=== PATIENT | female | born 1990 | race Caucasian/White ===

== ENCOUNTER 2022-07-11 15:03 | Emergency (ER) | payer BC ==
[2022-07-11 15:11] VITALS: TEMP 98.2
[2022-07-11] MEDS ORDERED: ONDANSETRON 4 MG/2 ML VIAL IVP STA (16:41)
[2022-07-11] MEDS ORDERED: SODIUM CHLORIDE 0.9% 1,000 ML IV ONE ×2 (16:41→18:22)
[2022-07-11 17:08] LABS: Basophils % (A) 0 %; Eosinophils # (A) 0.1 k/uL (0-0.7); Eosinophils % (A) 1 %; HCT 38.4 % (34.0-46.0); HGB 13.3 gm/dL (11.4-16.0); Lymphocytes # (A) 1.5 k/uL (1.0-4.8); Lymphocytes % (A) 17 %; MCH 31.5 pg (25.0-35.0); MCHC 34.6 g/dL (31.0-37.0); Mean Platelet Volume 8.3; Monocytes # (A) 0.4 k/uL (0-1.0); Monocytes % (A) 5 %; Neutrophils # (A) 6.7 k/uL (1.3-7.7); Neutrophils % (A) 76 %; Platelet Count 181 k/uL (150-450); RBC 4.23 m/uL (3.80-5.40); RDW 12.9 % (11.5-15.5); WBC 8.8 k/uL (3.8-10.6)
[2022-07-11 17:26] LABS: ALT 17 U/L (4-34); AST 31 U/L (14-36); African American GFR (CKD) >90 (>60 ml/min/1.73 sqM); Alkaline Phosphatase 54 U/L (38-126); Anion Gap 12 mmol/L; Blood Urea Nitrogen 17 mg/dL (7-17); Carbon Dioxide 21 mmol/L (22-30); Chloride 106 mmol/L (98-107); Glucose 90 mg/dL (74-99); Lipase 118 U/L (23-300); Magnesium 1.9 mg/dL (1.6-2.3); Non-African American GFR(CKD) >90 (>60 ml/min/1.73 sqM); Sodium 139 mmol/L (137-145); Total Bilirubin 1.1 mg/dL (0.2-1.3); Total Protein 8.2 g/dL (6.3-8.2)
[2022-07-11 17:31] LABS: Potassium 4.4 mmol/L (3.5-5.1)
[2022-07-11 17:42] VITALS: RESP 16
--- NOTE | 2022-07-11 17:49 | ED ---
General Adult HPI - General Chief complaint: Nausea/Vomiting/Diarrhea Stated complaint: 12 weeks , dehydration/vomiting Time Seen by Provider: 07/11/22 15:56 Source: patient Mode of arrival: ambulatory Limitations: no limitations - History of Present Illness Initial comments: This is a 31-year-old female with a past medical history including previous gastric sleeve surgery presents emergency department for nausea and vomiting in . The patient stated that she has been vomiting with nausea over the last 2 days and stated that she recently just returned back from her [facility] where she was on a cruise ship for 12 days. The patient stated that she has been doing well throughout this but stated that it became worse last 2 days. The patient is 12 weeks . The patient denied any other acute pain or complaints at this time. The patient was advised to come to the emergency department by her BANK EXAMINER. And stated that her last full meal was likely 2 days ago. The patient denied any other acute pain or complaints at this time. - Related Data Home Medications Medication Instructions Recorded Confirmed Aspirin EC [Ecotrin Low Dose] 81 mg PO HS 07/11/22 07/11/22 Obm-Bfrz-Jrago Acid 1 cap PO HS 07/11/22 07/11/22 [-U Capsule (formulary)] Thyroid,Pork [[place] Thyroid] 60 mg PO DAILY 07/11/22 07/11/22 Previous Rx's Medication Instructions Recorded Cephalexin [Keflex] 500 mg PO Q6HR 1 Days #20 cap 07/11/22 Ondansetron Odt [Zofran Odt] 4 mg PO Q8HR PRN #20 tab 07/11/22 Allergies Allergy/AdvReac Type Severity Reaction Status Date / Time latex Allergy Rash/Hives Verified 07/11/22 17:57 Review of Systems ROS Statement: Those systems with pertinent positive or pertinent negative responses have been documented in the HPI. ROS Other: All systems not noted in ROS Statement are negative. Past Medical History Past Medical History: No Reported History History of Any Multi-Drug Resistant Organisms: None Reported Additional Past Surgical History / Comment(s): Gastric sleeve Smoking Status: Never smoker Past Alcohol Use History: None Reported Past Drug Use History: None Reported General Exam Limitations: no limitations General appearance: alert, in no apparent distress Head exam: Present: atraumatic, normocephalic, normal inspection Eye exam: Present: normal appearance, PERRL Pupils: Present: normal accommodation ENT exam: Present: normal exam, normal oropharynx, mucous membranes moist Neck exam: Present: normal inspection, full ROM Respiratory exam: Present: normal lung sounds bilaterally Cardiovascular Exam: Present: regular rate, normal rhythm, normal heart sounds GI/Abdominal exam: Present: soft, normal bowel sounds Extremities exam: Present: normal inspection, full ROM Back exam: Present: normal inspection, full ROM Neurological exam: Present: alert, oriented X3, CN II-XII intact Psychiatric exam: Present: normal affect, normal mood Skin exam: Present: warm, dry Course Vital Signs 07/11/22 07/11/22 07/11/22 15:09 15:58 16:00 Temperature 98.2 F Pulse Rate 90 Respiratory 20 Rate Blood Pressure 113/76 O2 Sat by Pulse 99 98 100 Oximetry 07/11/22 07/11/22 07/11/22 16:02 16:30 17:00 Temperature Pulse Rate 77 79 61 Respiratory 18 20 16 Rate Blood Pressure 128/81 128/81 115/78 O2 Sat by Pulse 100 100 100 Oximetry 07/11/22 07/11/22 07/11/22 17:30 18:00 18:30 Temperature Pulse Rate 62 72 71 Respiratory 16 16 16 Rate Blood Pressure 107/70 103/71 99/75 O2 Sat by Pulse 100 95 100 Oximetry 07/11/22 19:00 Temperature Pulse Rate 70 Respiratory 16 Rate Blood Pressure 101/62 O2 Sat by Pulse Oximetry Medical Decision Making - Medical Decision Making Was pt. sent in by a medical professional or institution (, PA, WAITER/WAITRESS INFORMAL, urgent care, hospital, or group home...) When possible be specific @ -Yes, patient's BANK EXAMINER Did you speak to anyone other than the patient for history (EMS, parent, family, police, friend...)? What history was obtained from this source @ -No Did you review nursing and triage notes (agree or disagree)? Why? @ -I reviewed and agree with nursing and triage notes Were old charts reviewed (outside hosp., previous admission, EMS record, old EKG, old radiological studies, urgent care reports/EKG's, group home records)? Report findings @ -No old charts were reviewed Differential Diagnosis (chest pain, altered mental status, abdominal pain women, abdominal pain men, vaginal bleeding, weakness, fever, dyspnea, syncope, headache, dizziness, GI bleed, back pain, seizure, CVA, palpatations, mental health)? @ -Dehydration, nausea and vomiting in , UTI EKG interpreted by me (3pts min.). @ -None X-rays interpreted by me (1pt min.). @ -None done CT interpreted by me (1pt min.). @ -None done U/S interpreted by me (1pt. min.). @ -None done What testing was considered but not performed or refused? (CT, X-rays, U/S, labs)? Why? @ -None What meds were considered but not given or refused? Why? @ -None Did you discuss the management of the patient with other professionals (professionals i.e. , PA, WAITER/WAITRESS INFORMAL, lab, RT, psych nurse, social science research assistant, tire adjuster, teacher, community service officer, pillowcase sewer)? Give summary @ -No Was smoking cessation discussed for >3mins.? @ -No Was critical care preformed (if so, how long)? @ -No Were there social determinants of health that impacted care today? How? (Homelessness, low income, unemployed, alcoholism, drug addiction, transportation, low edu. Level, literacy, decrease access to med. care, residential, rehab)? @ -No Was there de-escalation of care discussed even if they declined (Discuss DNR or withdrawal of care, Hospice)? DNR status @ -No What co-morbidities impacted this encounter? (DM, HTN, Smoking, COPD, CAD, Cancer, CVA, ARF, Chemo, Hep., AIDS, mental health diagnosis, sleep apnea, morbid obesity)? @ -None Was patient admitted / discharged? Hospital course, mention meds given and route, prescriptions, significant lab abnormalities, going to OR and other pertinent info. @ -The patient was seen and evaluated in the emergency department. Physical exam, the patient was resting in bed. Vital signs were stable. Laboratory workup was within normal limits and the patient was given 1 L no sealing fluid and 4 mg of Zofran. The patient had improvement of her symptoms and did have a second liter of fluids. The patient remained stable and did urinalysis did show signs of patient's medic bacteriuria therefore the patient was given a dose of Keflex and a prescription for Keflex to be taken at home. The patient was also given a prescription for Zofran to be taken at home. The patient was advised to follow-up with her BANK EXAMINER for further workup and evaluation and to report back to the emergency department if her pain or symptoms became acutely worse. The patient was agreeable to this and all of her questions were answered. The patient was discharged home in stable condition. Undiagnosed new problem with uncertain prognosis? @ -No Drug Therapy requiring intensive monitoring for toxicity (Heparin, Nitro, I nsulin, Cardizem)? @ -No Were any procedures done? @ -No Diagnosis/symptom? @ -Nausea, vomiting in Acute, or Chronic, or Acute on Chronic? @ -Acute Uncomplicated (without systemic symptoms) or Complicated (systemic symptoms)? @ -Uncomplicated Side effects of treatment? @ -No Exacerbation, Progression, or Severe Exacerbation? @ -No Poses a threat to life or bodily function? How? (Chest pain, USA, VT, pneumonia, PE, COPD, DKA, ARF, appy, cholecystitis, CVA, Diverticulitis, Homicidal, Suicidal, threat to staff... and all critical care pts) @ -No Diagnosis/symptom? @ -Asymptomatic bacteriuria in Acute, or Chronic, or Acute on Chronic? @ -Acute Uncomplicated (without systemic symptoms) or Complicated (systemic symptoms)? @ -Uncomplicated Side effects of treatment? @ -none Exacerbation, Progression, or Severe Exacerbation] @ -no Poses a threat to life or bodily function? @ -no - Lab Data Result diagrams: 07/11/22 16:47 07/11/22 16:47 Lab Results 07/11/22 07/11/22 07/11/22 Range/Units 16:47 16:47 19:00 WBC 8.8 (3.8-10.6) k/uL RBC 4.23 (3.80-5.40) m/uL Hgb 13.3 (11.4-16.0) gm/dL Hct 38.4 (34.0-46.0) % MCV 91.0 (80.0-100.0) fL MCH 31.5 (25.0-35.0) pg MCHC 34.6 (31.0-37.0) g/dL RDW 12.9 (11.5-15.5) % Plt Count 181 (150-450) k/uL MPV 8.3 Neutrophils % 76 % Lymphocytes % 17 % Monocytes % 5 % Eosinophils % 1 % Basophils % 0 % Neutrophils # 6.7 (1.3-7.7) k/uL Lymphocytes # 1.5 (1.0-4.8) k/uL Monocytes # 0.4 (0-1.0) k/uL Eosinophils # 0.1 (0-0.7) k/uL Basophils # 0.0 (0-0.2) k/uL Sodium 139 (137-145) mmol/L Potassium 4.4 (3.5-5.1) mmol/L Chloride 106 (98-107) mmol/L Carbon Dioxide 21 L (22-30) mmol/L Anion Gap 12 mmol/L BUN 17 (7-17) mg/dL Creatinine 0.47 L (0.52-1.04) mg/dL Est GFR (CKD-EPI)AfAm >90 (>60 ml/min/1.73 sqM) Est GFR (CKD-EPI)NonAf >90 (>60 ml/min/1.73 sqM) Glucose 90 (74-99) mg/dL Calcium 10.0 (8.4-10.2) mg/dL Magnesium 1.9 (1.6-2.3) mg/dL Total Bilirubin 1.1 (0.2-1.3) mg/dL AST 31 (14-36) U/L ALT 17 (4-34) U/L Alkaline Phosphatase 54 (38-126) U/L Total Protein 8.2 (6.3-8.2) g/dL Albumin 5.0 (3.5-5.0) g/dL Lipase 118 (23-300) U/L Urine Color Yellow Urine Appearance Clear (Clear) Urine pH 6.0 (5.0-8.0) Ur Specific [place] 1.037 H (1.001-1.035) Urine Protein 1+ H (Negative) Urine Glucose (UA) Negative (Negative) Urine Ketones 4+ H (Negative) Urine Blood Negative (Negative) Urine Nitrite Negative (Negative) Urine Bilirubin Negative (Negative) Urine Urobilinogen 2.0 (<2.0) mg/dL Ur Leukocyte Esterase Negative (Negative) Urine RBC 1 (0-5) /hpf Urine WBC 11 H (0-5) /hpf Ur Squamous Epith Cells 2 (0-4) /hpf Urine Bacteria Few H (None) /hpf Hyaline Casts 2 (0-2) /lpf Urine Mucus Many H (None) /hpf Disposition Clinical Impression: Vomiting affecting , UTI (urinary tract infection) Disposition: HOME SELF-CARE Condition: Stable Instructions (If sedation given, give patient instructions): Nausea and Vomiting in (ED), Urinary Tract Infection in Women (DC) Prescriptions: Cephalexin [Keflex] 500 mg PO Q6HR 1 Days #20 cap Ondansetron Odt [Zofran Odt] 4 mg PO Q8HR PRN #20 tab PRN Reason: Nausea Is patient prescribed a controlled substance at d/c from ED?: No Referrals: John Miguel DO [Primary Care Provider] - 1-2 days Time of Disposition: 19:45
[2022-07-11 19:19] VITALS: BP 101/62; PULSE 70
[2022-07-11 19:41] LABS: Appearance,Urine Clear (Clear); Bacteria,Urine Few /hpf; Bilirubin,Urine Negative (Negative); Blood,Urine Negative (Negative); Color,Urine Yellow; Glucose,Urine (UA) Negative (Negative); Hyaline Casts,Urine 2 /lpf (0-2); Ketones,Urine 4+ (Negative); Leukocyte Esterase,Urine Negative (Negative); Mucus,Urine Many /hpf; Nitrite,Urine Negative (Negative); Protein,Urine 1+ (Negative); RBC,Urine 1 /hpf (0-5); Specific Gravity,Urine 1.037 (1.001-1.035); Squamous Epithelial Cell,Urine 2 /hpf (0-4); WBC,Urine 11 /hpf (0-5)
[2022-07-11] MEDS ORDERED: CEPHALEXIN 500 MG CAP PO STA (19:51)
== END 2022-07-11 20:11 | disposition home or self-care (01) ==
LOC: EC 15:03
DX: O21.9 Vomiting of pregnancy, unspecified (principal); O23.41 Unspecified infection of urinary tract in pregnancy, first trimester; Z91.040 Latex allergy status; Z3A.12 12 weeks gestation of pregnancy
CPT/HCPCS: 36415; 80053; 83690; 83735; 85025; 81001; 99284; 96374; 96361 ×2; J2405

== ENCOUNTER 2022-12-24 05:58 | Inpatient (IN) | payer BC ==
[2022-12-24] MEDS ORDERED: TERBUTALINE 1 MG/ML VIAL SQ PRN (06:55)
[2022-12-24] MEDS ORDERED: METHYLERGONOVINE 0.2 MG/ML 1 ML AMP IM PRN (06:55)
[2022-12-24] MEDS ORDERED: TRANEXAMIC 1,000 MG/100ML-NACL 1,000 MG in EMPTY BAG 1 BAG IV PRN (06:55)
[2022-12-24] MEDS ORDERED: PENICILLIN G POTASSIUM 5,000,000 UNIT in DEXTROSE 5% IN WATER 100 ML IVPB STA ×2 (06:55)
[2022-12-24] MEDS ORDERED: LIDOCAINE 0.5% (PF) 5 MG/ML (50 ML SDV) SQ PRN (06:55)
[2022-12-24] MEDS ORDERED: OXYTOCIN 10 UNIT/ML 1 ML VIAL IM PRN (06:55)
[2022-12-24] MEDS ORDERED: miSOPROStoL 200 MCG TAB PO PRN (06:55)
[2022-12-24] MEDS ORDERED: CARBOPROST TROMETHAMINE 250 MCG/ML 1 ML AMP IM PRN (06:55)
[2022-12-24] MEDS ORDERED: OXYTOCIN 30 UNITS/500 ML NS 30 UNIT in SALINE 1 500ML.BAG IV SCH ×2 (07:00→16:00)
[2022-12-24] MEDS: LACTATED RINGERS 1,000 ML IV SCH ×2 (07:39→10:45)
[2022-12-24 07:57] LABS: Basophils % (A) 0 %; Eosinophils # (A) 0.3 k/uL (0-0.7); Eosinophils % (A) 3 %; HCT 36.9 % (34.0-46.0); HGB 12.4 gm/dL (11.4-16.0); Lymphocytes # (A) 2.6 k/uL (1.0-4.8); Lymphocytes % (A) 25 %; MCH 32.1 pg (25.0-35.0); MCHC 33.6 g/dL (31.0-37.0); MCV 95.7 fL (80.0-100.0); Mean Platelet Volume 10.7; Monocytes # (A) 0.5 k/uL (0-1.0); Monocytes % (A) 5 %; Neutrophils # (A) 6.9 k/uL (1.3-7.7); Neutrophils % (A) 66 %; Platelet Count 170 k/uL (150-450); RBC 3.86 m/uL (3.80-5.40); RDW 13.2 % (11.5-15.5); WBC 10.5 k/uL (3.8-10.6)
[2022-12-24 08:00] LABS: Glucose,Whole Blood 79 mg/dL (70-110)
--- NOTE | 2022-12-24 09:23 | P.HPOB ---
History of Present Illness H&P Date: 12/24/22 Chief Complaint: leaking of fluid Ms. Torres is a 32 year old at 36 weeks and 2 days presenting with grossly ruptured membranes and diagnosed with PPROM. The patient was admitted and pitocin augmentation started. The has been complicated by finding of marginal cord insertion as well as diet-controlled gestational diabetes. The fetus was measuring in the 61%ile on most recent growth ultrasound at 28 weeks. The patient herself has a history of gastric sleeve surgery and hypothyroidism (managed by PCP). Maternal serologies: blood type A positive, antibody screen negative, rubella non-immune, VDRL none-reactive, HBsAg negative, HIV negative, GBS unknown. Past Medical History Past Medical History: Asthma, Thyroid Disorder Additional Past Medical History / Comment(s): childhood asthma, hypothyroid, pancreatitis from gastric sleeve History of Any Multi-Drug Resistant Organisms: None Reported Past Surgical History: Cholecystectomy, Tonsillectomy Additional Past Surgical History / Comment(s): Gastric sleeve, breasts augmentation Past Anesthesia/Blood Transfusion Reactions: No Reported Reaction Past Psychological History: Anxiety, Depression Smoking Status: Never smoker Past Alcohol Use History: None Reported Past Drug Use History: None Reported Medications and Allergies Home Medications Medication Instructions Recorded Confirmed Type Aspirin EC [Ecotrin Low Dose] 81 mg PO HS 07/11/22 12/24/22 History Lso-Rmea-Ffqlt Acid 1 cap PO HS 07/11/22 12/24/22 History [-U Capsule (formulary)] Thyroid,Pork [[place] Thyroid] 60 mg PO DAILY 07/11/22 12/24/22 History Allergies Allergy/AdvReac Type Severity Reaction Status Date / Time surgical glue Allergy Intermediate Swelling Uncoded 12/24/22 06:13 Exam Vital Signs Temp Pulse Resp BP Pulse Ox 12/24/22 07:59 98.0 F 61 16 124/78 12/24/22 06:54 97.6 F 72 16 120/77 99 Intake and Output 12/23/22 12/24/22 12/24/22 22:59 06:59 14:59 Other: Weight 71.668 kg 71.668 kg Focused physical exam is performed. This is a healthy-appearing in no apparent distress. Abdomen is gravid and non-tender. Cervical exam is 2-3 cm dilated, 70% effaced, and -3 station. Extremities are non-tender, non- edematous. heart tones are Category I. Tocometer is graphing contractions every 2-3 minutes. Results Result Diagrams: 12/24/22 07:30 Assessment and Plan Assessment: 32 year old at 36 weeks and 2 days presenting with PPROM, complicated by GDMA1 and marginal cord insertion Plan: Admit, NPO, mIVF, PCN ppx for GBS unknown and , pitocin augmentation of labor, continuous EFM, close monitoring of patient. POC glucose wnl at admission. Epidural prn. Time with Patient: Less than 30
[2022-12-24] MEDS ORDERED: NALBUPHINE 10 MG/ML (10 ML MDV) IV PRN (09:24)
[2022-12-24] MEDS ORDERED: ROPIVACAINE 5 MG/ML 20 ML AMPULE ONE (10:17)
[2022-12-24] MEDS ORDERED: fentaNYL (PF) 50 MCG/ML 5 ML AMP ONE (10:17)
[2022-12-24] MEDS ORDERED: SODIUM CHLORIDE 0.9% 100 ML BAG ONE (10:17)
[2022-12-24] MEDS: PENICILLIN G POTASSIUM 2,500,000 UNIT in DEXTROSE 5% IN WATER 100 ML IVPB SCH ×4 (11:37→16:23)
[2022-12-24] MEDS ORDERED: MEASLES-MUMPS-RUBELLA VACC/PF 12,500 UNIT/0.5 ML VIAL SQ ONE (15:56)
[2022-12-24] MEDS ORDERED: BENZOCAINE/MENTHOL SPRAY 1 GM/SPRAY AEROSOL TOPICAL PRN (15:56)
[2022-12-24] MEDS ORDERED: SIMETHICONE 80 MG CHEWABLE PO PRN (15:56)
[2022-12-24] MEDS ORDERED: ZOLPIDEM 5 MG TAB PO PRN (15:56)
[2022-12-24] MEDS ORDERED: LANOLIN CREAM 5 GM TUBE TOPICAL PRN (15:56)
[2022-12-24] MEDS ORDERED: diphenhydrAMINE 25 MG CAP PO PRN (15:56)
[2022-12-24] MEDS ORDERED: diphenhydrAMINE 50 MG CAP PO PRN (15:56)
[2022-12-24] MEDS ORDERED: diphenhydrAMINE 50 MG/ML 1 ML VIAL IVP PRN ×2 (15:56)
[2022-12-24] MEDS ORDERED: HYDROCORTISONE 2.5% RECTAL CREAM 30 GM TUBE RECTAL PRN (15:56)
--- NOTE | 2022-12-24 15:56 | P.PROBDLV ---
Vaginal Delivery Note - . Vaginal Delivery Note: DATE OF SERVICE: 12/24/2022 PROCEDURE: Vaginal Delivery ATTENDING: Dr. Arlen Barron MD ESTIMATED BLOOD LOSS: 700 mL FINDINGS: VFI, Apgars 6/8, Weight 5#15oz PROCEDURE: Patient was a 32 y/o at 36 weeks and 2 days who presented to labor and delivery with PPROM. The patient was ravi irregularly so oxytocin augmentation was started. Penicillin was given for GBS prophylaxis. The patient progressed quickly to complete dilation. The patient pushed for approximately 2 hours. The head delivered in occiput anterior position without difficulty followed by shoulders and body over intact perineum. placed on maternal abdomen and bulb suctioned. Cord was clamped and cut. Placenta delivered whole with gentle cord traction. Oxytocin was started to facilitate uterine tone. Uterine fundus firm but the lower uterine segment was boggy. Patient had a hemorrhage with total blood loss estimated at 700 mL. Bladder was drained, bimanual massage was performed, and IM Methergine was given to facilitate uterine contraction. Perineal inspection revealed periurethral lacerations and a left sulcal laceration all repaired with 3-0 Vicryl in a running fashion. Patient stable .
[2022-12-24] MEDS: IBUPROFEN 600 MG TAB PO PRN (18:24)
[2022-12-24] MEDS ORDERED: ONDANSETRON 4 MG TAB PO PRN (18:48)
[2022-12-25] MEDS: IBUPROFEN 600 MG TAB PO PRN ×3 (04:39→20:34)
[2022-12-25] MEDS: SENNOSIDES-DOCUSATE SODIUM 1 EACH TAB PO SCH ×3 (07:37→20:35)
[2022-12-25] MEDS: ACETAMINOPHEN TAB 325 MG TAB PO PRN ×2 (07:38→18:04)
[2022-12-25 08:20] LABS: Basophils % (A) 0 %; Eosinophils # (A) 0.3 k/uL (0-0.7); Eosinophils % (A) 3 %; HCT 28.2 % (34.0-46.0); Lymphocytes # (A) 2.1 k/uL (1.0-4.8); Lymphocytes % (A) 19 %; MCHC 33.7 g/dL (31.0-37.0); MCV 95.2 fL (80.0-100.0); Mean Platelet Volume 11.2; Monocytes # (A) 0.7 k/uL (0-1.0); Monocytes % (A) 6 %; Neutrophils # (A) 7.6 k/uL (1.3-7.7); Neutrophils % (A) 69 %; Platelet Count 144 k/uL (150-450); RBC 2.96 m/uL (3.80-5.40); RDW 13.1 % (11.5-15.5); WBC 10.9 k/uL (3.8-10.6)
[2022-12-25 08:30] LABS: HGB 9.5 gm/dL (11.4-16.0)
[2022-12-25] MEDS: LACTATED RINGERS 1,000 ML IV SCH ×2 (08:52→14:37)
--- NOTE | 2022-12-25 11:35 | P.PNOBGVD ---
Subjective - Subjective Principal diagnosis: s/p normal vaginal delivery Interval history: Patient doing well this morning. She has no complaints. Pain is well controlled with medications. Female infant is at the bedside, doing well, and nursing well. She reports moderate lochia, ambulating without lightheadedness, voiding without difficulty. She denies chest pain, shortness of breath, fevers, chills, pain/swelling in the legs. She would like to stay an additional night in the hospital. Patient reports: Reports appetite normal, Reports voiding normally, Reports pain well controlled, Reports ambulating normally [place]: doing well Objective - Latest Vital Signs Latest vital signs: Vital Signs Temp Pulse Resp BP Pulse Ox 12/25/22 07:30 97.8 F 65 18 112/75 98 12/25/22 04:00 98.2 F 65 17 105/64 97 12/25/22 00:00 98.3 F 70 16 101/56 12/24/22 20:00 98.1 F 70 16 115/70 12/24/22 17:45 57 L 16 111/70 12/24/22 17:15 98.0 F 67 16 130/58 12/24/22 16:45 98.0 F 71 16 130/76 12/24/22 16:30 98.0 F 68 16 120/71 12/24/22 16:15 71 16 116/58 12/24/22 16:00 77 16 117/69 12/24/22 15:45 97.8 F 65 18 115/63 Intake and Output 12/24/22 12/25/22 12/25/22 22:59 06:59 14:59 Output Total 825 Balance -825 Output: Estimated Blood Loss 700 Output, Quantitative 125 Blood Loss Other: Voiding Method Toilet # Voids 1 1 - Exam Extremities: Present: normal Abdomen: Present: normal appearance, soft Uterus: Present: normal, firm - Labs Labs: Abnormal Lab Results - Last 24 Hours (Table) 12/25/22 Range/Units 07:50 WBC 10.9 H (3.8-10.6) k/uL RBC 2.96 L (3.80-5.40) m/uL Hgb 9.5 L D (11.4-16.0) gm/dL Hct 28.2 L (34.0-46.0) % Plt Count 144 L (150-450) k/uL Assessment and Plan Assessment: 32 year old now PPD#1 s/p vaginal delivery after augmentation of labor for PPROM Plan: Patient meeting all milestones appropriately. She desires an additional night in the hospital. Anticipate discharge home tomorrow.
--- NOTE | 2022-12-26 07:13 | P.PNOBGVD ---
Subjective - Subjective Principal diagnosis: s/p vaginal delivery Interval history: The patient is doing well this morning and had no acute events overnight. She has no complaints this morning. She reports minimal lochia, passing flatus, voiding without difficulty, ambulating, and eating/drinking without nausea or vomiting. She is her infant without difficulty. She denies chest pain, shortness of breathing, fevers, or chills overnight. She denies pain or swelling in the legs. Patient reports: Reports appetite normal, Reports voiding normally, Reports pain well controlled, Reports ambulating normally : doing well Objective - Latest Vital Signs Latest vital signs: Vital Signs Temp Pulse Resp BP Pulse Ox 12/26/22 00:00 97.9 F 55 L 18 120/75 99 12/25/22 16:00 98.4 F 69 18 109/72 98 12/25/22 12:00 98.4 F 65 18 117/79 98 12/25/22 07:30 97.8 F 65 18 112/75 98 Intake and Output 12/25/22 12/26/22 12/26/22 22:59 06:59 14:59 Other: # Voids 1 - Exam Extremities: Present: normal Abdomen: Present: normal appearance, soft Uterus: Present: normal, firm - Labs Labs: Abnormal Lab Results - Last 24 Hours (Table) 12/25/22 Range/Units 07:50 WBC 10.9 H (3.8-10.6) k/uL RBC 2.96 L (3.80-5.40) m/uL Hgb 9.5 L D (11.4-16.0) gm/dL Hct 28.2 L (34.0-46.0) % Plt Count 144 L (150-450) k/uL Assessment and Plan Assessment: 32 year old now PPD#2 s/p vaginal delivery after augmentation of labor for PPROM Plan: Patient meeting all milestones appropriately. Will discharge home today.
--- NOTE | 2022-12-26 07:27 | P.DS ---
Providers Date of admission: 12/24/22 06:37 Expected date of discharge: 12/26/22 Attending physician: Sabrina Mina Primary care physician: Stated None Hospital Course: This is a 32 year old now PPD#2 s/p vaginal delivery after pitocin augmentation for PPROM. The patient is doing well this morning and had no acute events overnight. She desires discharge home today. She has no complaints this morning. She reports minimal lochia, passing flatus, voiding without difficulty, ambulating, and eating/drinking without nausea or vomiting. doing well at bedside, is going well. She denies chest pain, shortness of breathing, fevers, or chills overnight. She denies pain or swelling in the legs. restrictions are reviewed with the patient including pelvic rest for 6 weeks. The patient is encouraged to call the office if she experiences any heavy bleeding, foul-smelling discharge, breast complaints, or any if she has any other concerns. She will follow up in the office with Dr. Mina in 6 weeks for exam. All questions are answered. Assessment: 32 year old now PPD#2 s/p vaginal delivery 2/2 to PPROM Patient Condition at Discharge: Good Plan - Discharge Summary New Discharge Prescriptions: No Action Zvm-Zszw-Oqmtr Acid [-U Capsule (formulary)] 1 cap PO HS Aspirin EC [Ecotrin Low Dose] 81 mg PO HS Thyroid,Pork [[place] Thyroid] 60 mg PO DAILY Discharge Medication List Aspirin EC [Ecotrin Low Dose] 81 mg PO HS 07/11/22 [History] Lat-Bcws-Ktpyp Acid [-U Capsule (formulary)] 1 cap PO HS 07/11/22 [History] Thyroid,Pork [[place] Thyroid] 60 mg PO DAILY 07/11/22 [History] Follow up Appointment(s)/Referral(s): Sabrina Mina DO [Doctor of Osteopathic Medicine] - 6 Weeks Patient Instructions/Handouts: Depression (DC), Perineal Care (DC), Bleeding (DC), How to Tell if Your Baby is Getting Enough Breast Milk (DC), How to Increase Your Milk Supply (DC) Activity/Diet/Wound Care/Special Instructions: Pelvic rest x 6 weeks Discharge Disposition: HOME SELF-CARE
[2022-12-26] MEDS: SENNOSIDES-DOCUSATE SODIUM 1 EACH TAB PO SCH (08:02)
[2022-12-26] MEDS: IBUPROFEN 600 MG TAB PO PRN (08:02)
[2022-12-26 08:08] VITALS: BP 123/73; PULSE 72; RESP 16; TEMP 97.3
== END 2022-12-26 10:45 | disposition home or self-care (01) | DRG 805 ==
LOC: FBPOP 05:58 → 4FBP 06:37
PROVIDERS: ADMIT Obstetrics & Gynecology; ATTEND Obstetrics & Gynecology Obstetrics
PROC: 10E0XZZ Delivery of Products of Conception, External Approach (ICD-10-PCS; principal; 2022-12-24)
PROC: 0UQMXZZ Repair Vulva, External Approach (ICD-10-PCS; 2022-12-24)
DX: O42.913 Preterm premature rupture of membranes, unspecified as to length of time between rupture and onset of labor, third trimester (principal); O60.14X0 Preterm labor third trimester with preterm delivery third trimester, not applicable or unspecified; Z37.0 Single live birth; O71.4 Obstetric high vaginal laceration alone; O72.1 Other immediate postpartum hemorrhage; O24.420 Gestational diabetes mellitus in childbirth, diet controlled; E03.9 Hypothyroidism, unspecified; O71.82 Other specified trauma to perineum and vulva; O43.193 Other malformation of placenta, third trimester; O99.844 Bariatric surgery status complicating childbirth; O99.284 Endocrine, nutritional and metabolic diseases complicating childbirth; Z3A.36 36 weeks gestation of pregnancy; Z91.048 Other nonmedicinal substance allergy status
CPT/HCPCS: 59025; 84112; 85025; 86850; 86900; 86901; 90707; 99213

== ENCOUNTER 2023-09-09 00:30 | Emergency (ER) | payer BC ==
[2023-09-09] MEDS: ONDANSETRON 4 MG/2 ML VIAL IVP STA (01:21)
[2023-09-09] MEDS: SODIUM CHLORIDE 0.9% 1,000 ML IV STA (01:21)
[2023-09-09 01:26] LABS: Basophils % (A) 0 %; Eosinophils % (A) 0 %; HGB 12.7 gm/dL (11.4-16.0); Lymphocytes % (A) 19 %; MCH 32.2 pg (25.0-35.0); MCHC 35.4 g/dL (31.0-37.0); Mean Platelet Volume 9.1; Monocytes # (A) 0.4 k/uL (0-1.0); Monocytes % (A) 8 %; Neutrophils # (A) 3.9 k/uL (1.3-7.7); Neutrophils % (A) 71 %; Platelet Count 136 k/uL (150-450); RBC 3.95 m/uL (3.80-5.40); RDW 13.3 % (11.5-15.5); WBC 5.4 k/uL (3.8-10.6)
[2023-09-09] MEDS: ACETAMINOPHEN IV (For NPO) 1,000 MG in EMPTY BAG 1 BAG IVPB STA (01:30)
[2023-09-09 01:34] LABS: Appearance,Urine Cloudy (Clear); Bacteria,Urine Occasional /hpf; Bilirubin,Urine Negative (Negative); Blood,Urine Negative (Negative); Color,Urine Yellow; Glucose,Urine (UA) Negative (Negative); Ketones,Urine 2+ (Negative); Leukocyte Esterase,Urine Small (Negative); Mucus,Urine Many /hpf; Nitrite,Urine Negative (Negative); Protein,Urine Trace (Negative); RBC,Urine 1 /hpf (0-5); Specific Gravity,Urine 1.017 (1.001-1.035); Squamous Epithelial Cell,Urine 13 /hpf (0-4); Urobilinogen,Urine <2.0 mg/dL (<2.0); WBC,Urine 3 /hpf (0-5)
[2023-09-09 01:37] LABS: ALT 14 U/L (4-34); AST 23 U/L (14-36); African American GFR (CKD) >90 (>60 ml/min/1.73 sqM); Alkaline Phosphatase 58 U/L (38-126); Blood Urea Nitrogen 7 mg/dL (7-17); Calcium 9.1 mg/dL (8.4-10.2); Carbon Dioxide 18 mmol/L (22-30); Glucose 96 mg/dL (74-99); Lipase 95 U/L (23-300); Non-African American GFR(CKD) >90 (>60 ml/min/1.73 sqM); Total Bilirubin 0.6 mg/dL (0.2-1.3); Total Protein 6.8 g/dL (6.3-8.2)
[2023-09-09 01:44] LABS: Chloride 106 mmol/L (98-107); Potassium 3.6 mmol/L (3.5-5.1); Sodium 134 mmol/L (137-145)
[2023-09-09 01:45] LABS: Anion Gap 10 mmol/L
[2023-09-09 02:10] VITALS: RESP 16
--- NOTE | 2023-09-09 02:57 | ED ---
Nausea/Vomiting/Diarrhea HPI - General Chief complaint: Nausea/Vomiting/Diarrhea Stated complaint: N/V 11 weeks Time Seen by Provider: 09/09/23 01:11 Source: patient Mode of arrival: ambulatory Limitations: no limitations - History of Present Illness Initial comments: He is a pleasant 33-year-old female is currently 11 weeks who presents ER today for fevers chills nausea vomiting diarrhea. - Related Data Home Medications Medication Instructions Recorded Confirmed Aspirin EC [Ecotrin Low Dose] 81 mg PO HS 07/11/22 12/24/22 Pxe-Ikci-Yltvr Acid 1 cap PO HS 07/11/22 12/24/22 [-U Capsule (formulary)] Thyroid,Pork [[place] Thyroid] 60 mg PO DAILY 07/11/22 12/24/22 Previous Rx's Medication Instructions Recorded Cephalexin [Keflex] 500 mg PO Q12HR 1 Days #2 cap 09/09/23 Ondansetron Odt [Zofran Odt] 4 mg PO Q8HR PRN #12 tab 09/09/23 Oseltamivir [Tamiflu] 75 mg PO Q12HR #14 cap 09/09/23 Allergies Allergy/AdvReac Type Severity Reaction Status Date / Time surgical glue Allergy Intermediate Swelling Uncoded 09/09/23 00:45 Review of Systems ROS Statement: Those systems with pertinent positive or pertinent negative responses have been documented in the HPI. ROS Other: All systems not noted in ROS Statement are negative. 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 EYES: PERRL, EOMI PULMONARY: Unlabored respirations CARDIOVASCULAR: Tachycardic, regular Warm and well perfused extremities ABDOMEN: Non-distended SKIN: No rashes or bruising : Deferred NEUROLOGIC: Alert and oriented Normal speech Normal gait MUSCULOSKELETAL: Moving all extremities with no apparent injury PSYCHIATRIC: No SI/HI Limitations: no limitations Course Vital Signs 09/09/23 09/09/23 09/09/23 00:44 01:04 02:02 Temperature 99.6 F 101.4 F H 98.9 F Pulse Rate 101 H 87 Respiratory 20 16 Rate Blood Pressure 102/69 106/62 O2 Sat by Pulse 98 98 Oximetry 09/09/23 03:20 Temperature 98.1 F Pulse Rate 86 Respiratory 16 Rate Blood Pressure 101/61 O2 Sat by Pulse 98 Oximetry Medical Decision Making - Medical Decision Making Was pt. sent in by a medical professional or institution (, PA, CEMENT MIXER DRIVER, urgent care, hospital, or skilled nursing...) When possible be specific @ -No Did you speak to anyone other than the patient for history (EMS, parent, family, police, friend...)? What history was obtained from this source @ -No Did you review nursing and triage notes (agree or disagree)? Why? @ -I reviewed and agree with nursing and triage notes Were old charts reviewed (outside hosp., previous admission, EMS record, old EKG, old radiological studies, urgent care reports/EKG's, skilled nursing records)? Report findings @ -No old charts were reviewed Differential Diagnosis (chest pain, altered mental status, abdominal pain women, abdominal pain men, vaginal bleeding, weakness, fever, dyspnea, syncope, headache, dizziness, GI bleed, back pain, seizure, CVA, palpatations, mental health)? @ -Not applicable EKG interpreted by me (3pts min.). @ -As above X-rays interpreted by me (1pt min.). @ -None done CT interpreted by me (1pt min.). @ -None done U/S interpreted by me (1pt. min.). @ -None done What testing was considered but not performed or refused? (CT, X-rays, U/S, labs)? Why? @ -None What meds were considered but not given or refused? Why? @ -None Did you discuss the management of the patient with other professionals (professionals i.e. , PA, CEMENT MIXER DRIVER, lab, RT, psych nurse, community mental health social worker, training instructor, teacher, facilities officer, returned case inspector)? Give summary @ -No Was smoking cessation discussed for >3mins.? @ -No Was critical care preformed (if so, how long)? @ -No Were there social determinants of health that impacted care today? How? (Homelessness, low income, unemployed, alcoholism, drug addiction, transportation, low edu. Level, literacy, decrease access to med. care, shelter, rehab)? @ -No Was there de-escalation of care discussed even if they declined (Discuss DNR or withdrawal of care, Hospice)? DNR status @ -No What co-morbidities impacted this encounter? (DM, HTN, Smoking, COPD, CAD, Cancer, CVA, ARF, Chemo, Hep., AIDS, mental health diagnosis, sleep apnea, morbid obesity)? @ -None Was patient admitted / discharged? Hospital course, mention meds given and route, prescriptions, significant lab abnormalities, going to OR and other pertinent info. @Discharged The patient was seen and evaluated, history is obtained from the patient. Patient currently 11 weeks with flulike symptoms. Patient is positive for influenza B. Patient's fever was managed with Tylenol and IV fluids. Upon reevaluation she is afebrile tachycardia has resolved. She is feeling better. I did discuss with patient that there is questionable data regarding the safety of Zofran in however there is definitive data that dehydration can lead to labor patient would prefer to be prescribed Zofran for supportive care if it will prevent dehydration. In addition patient's urine appeared contaminated, I offered her the option of straight cath for about a urine sample versus empiric treatment and patient was agreeable for plan with empiric treatment. Risks and benefits of Tamiflu were discussed. I advised the patient that due to being she is high risk for having worsening outcomes with influenza therefore she was agreeable to plan for discharge with Tamiflu. First dose was given in the ER patient was discharged home in stable condition. Undiagnosed new problem with uncertain prognosis? @ -No Drug Therapy requiring intensive monitoring for toxicity (Heparin, Nitro, Insulin, Cardizem)? @ -No Were any procedures done? @ -No Diagnosis/symptom? @ -Influenza B, first trimester Acute, or Chronic, or Acute on Chronic? @ -Acute Uncomplicated (without systemic symptoms) or Complicated (systemic symptoms)? @ -Default Side effects of treatment? @ -No Exacerbation, Progression, or Severe Exacerbation? @ -No Poses a threat to life or bodily function? How? (Chest pain, [place], [place], pneumonia, PE, COPD, DKA, ARF, appy, cholecystitis, CVA, Diverticulitis, Homicidal, Suicidal, threat to staff... and all critical care pts) @ -Unlikely however higher risk of miscarriage due to fever dehydration and acute illness - Lab Data Result diagrams: 09/09/23 01:12 09/09/23 01:12 Lab Results 09/09/23 09/09/23 09/09/23 Range/Units 01:12 01:12 01:12 WBC 5.4 (3.8-10.6) k/uL RBC 3.95 (3.80-5.40) m/uL Hgb 12.7 (11.4-16.0) gm/dL Hct 36.0 (34.0-46.0) % MCV 91.0 (80.0-100.0) fL MCH 32.2 (25.0-35.0) pg MCHC 35.4 (31.0-37.0) g/dL RDW 13.3 (11.5-15.5) % Plt Count 136 L (150-450) k/uL MPV 9.1 Neutrophils % 71 % Lymphocytes % 19 % Monocytes % 8 % Eosinophils % 0 % Basophils % 0 % Neutrophils # 3.9 (1.3-7.7) k/uL Lymphocytes # 1.0 (1.0-4.8) k/uL Monocytes # 0.4 (0-1.0) k/uL Eosinophils # 0.0 (0-0.7) k/uL Basophils # 0.0 (0-0.2) k/uL Sodium 134 L (137-145) mmol/L Potassium 3.6 (3.5-5.1) mmol/L Chloride 106 (98-107) mmol/L Carbon Dioxide 18 L (22-30) mmol/L Anion Gap 10 mmol/L BUN 7 (7-17) mg/dL Creatinine 0.48 L (0.52-1.04) mg/dL Est GFR (CKD-EPI)AfAm >90 (>60 ml/min/1.73 sqM) Est GFR (CKD-EPI)NonAf >90 (>60 ml/min/1.73 sqM) Glucose 96 (74-99) mg/dL Calcium 9.1 (8.4-10.2) mg/dL Total Bilirubin 0.6 (0.2-1.3) mg/dL AST 23 (14-36) U/L ALT 14 (4-34) U/L Alkaline Phosphatase 58 (38-126) U/L Total Protein 6.8 (6.3-8.2) g/dL Albumin 4.0 (3.5-5.0) g/dL Lipase 95 (23-300) U/L HCG, Quant 340687.0 mIU/mL Urine Color Yellow Urine Appearance Cloudy H (Clear) Urine pH 6.0 (5.0-8.0) Ur Specific [place] 1.017 (1.001-1.035) Urine Protein Trace H (Negative) Urine Glucose (UA) Negative (Negative) Urine Ketones 2+ H (Negative) Urine Blood Negative (Negative) Urine Nitrite Negative (Negative) Urine Bilirubin Negative (Negative) Urine Urobilinogen <2.0 (<2.0) mg/dL Ur Leukocyte Esterase Small H (Negative) Urine RBC 1 (0-5) /hpf Urine WBC 3 (0-5) /hpf Ur Squamous Epith Cells 13 H (0-4) /hpf Urine Bacteria Occasional H (None) /hpf Urine Mucus Many H (None) /hpf Influenza Type A (PCR) (Not Detectd) Influenza Type B (PCR) (Not Detectd) RSV (PCR) (Not Detectd) SARS-CoV-2 (PCR) (Not Detectd) 09/09/23 Range/Units 01:12 WBC (3.8-10.6) k/uL RBC (3.80-5.40) m/uL Hgb (11.4-16.0) gm/dL Hct (34.0-46.0) % MCV (80.0-100.0) fL MCH (25.0-35.0) pg MCHC (31.0-37.0) g/dL RDW (11.5-15.5) % Plt Count (150-450) k/uL MPV Neutrophils % % Lymphocytes % % Monocytes % % Eosinophils % % Basophils % % Neutrophils # (1.3-7.7) k/uL Lymphocytes # (1.0-4.8) k/uL Monocytes # (0-1.0) k/uL Eosinophils # (0-0.7) k/uL Basophils # (0-0.2) k/uL Sodium (137-145) mmol/L Potassium (3.5-5.1) mmol/L Chloride (98-107) mmol/L Carbon Dioxide (22-30) mmol/L Anion Gap mmol/L BUN (7-17) mg/dL Creatinine (0.52-1.04) mg/dL Est GFR (CKD-EPI)AfAm (>60 ml/min/1.73 sqM) Est GFR (CKD-EPI)NonAf (>60 ml/min/1.73 sqM) Glucose (74-99) mg/dL Calcium (8.4-10.2) mg/dL Total Bilirubin (0.2-1.3) mg/dL AST (14-36) U/L ALT (4-34) U/L Alkaline Phosphatase (38-126) U/L Total Protein (6.3-8.2) g/dL Albumin (3.5-5.0) g/dL Lipase (23-300) U/L HCG, Quant mIU/mL Urine Color Urine Appearance (Clear) Urine pH (5.0-8.0) Ur Specific [place] (1.001-1.035) Urine Protein (Negative) Urine Glucose (UA) (Negative) Urine Ketones (Negative) Urine Blood (Negative) Urine Nitrite (Negative) Urine Bilirubin (Negative) Urine Urobilinogen (<2.0) mg/dL Ur Leukocyte Esterase (Negative) Urine RBC (0-5) /hpf Urine WBC (0-5) /hpf Ur Squamous Epith Cells (0-4) /hpf Urine Bacteria (None) /hpf Urine Mucus (None) /hpf Influenza Type A (PCR) Detected A (Not Detectd) Influenza Type B (PCR) Not Detected (Not Detectd) RSV (PCR) Not Detected (Not Detectd) SARS-CoV-2 (PCR) Not Detected (Not Detectd) Disposition Clinical Impression: Influenza A Disposition: HOME SELF-CARE Condition: Stable Instructions (If sedation given, give patient instructions): Influenza (DC) Prescriptions: Cephalexin [Keflex] 500 mg PO Q12HR 1 Days #2 cap Oseltamivir [Tamiflu] 75 mg PO Q12HR #14 cap Ondansetron Odt [Zofran Odt] 4 mg PO Q8HR PRN #12 tab PRN Reason: Nausea Is patient prescribed a controlled substance at d/c from ED?: No Referrals: John Miguel DO [Primary Care Provider] - 1-2 days
[2023-09-09] MEDS: CEPHALEXIN 500MG STARTER PACK 4 CAP BTL PO STA (03:10)
[2023-09-09] MEDS: ONDANSETRON 4 MG ODT STARTER PACK 2 TAB BTL PO STA (03:10)
[2023-09-09] MEDS: CEPHALEXIN 500 MG CAP PO STA (03:10)
[2023-09-09] MEDS: OSELTAMIVIR 75 MG CAP PO STA (03:19)
[2023-09-09 03:45] VITALS: BP 101/61; PULSE 86; TEMP 98.1
== END 2023-09-09 03:22 | disposition home or self-care (01) ==
LOC: EC 00:30
DX: O99.511 Diseases of the respiratory system complicating pregnancy, first trimester (principal); J10.1 Influenza due to other identified influenza virus with other respiratory manifestations; Z90.49 Acquired absence of other specified parts of digestive tract; Z88.8 Allergy status to other drugs, medicaments and biological substances; Z3A.11 11 weeks gestation of pregnancy
CPT/HCPCS: 36415; 80053; 83690; 85025; 81001; 84702; 87636; 99284; 96365; 96375; 96361; J2405; J0131; S0119

== ENCOUNTER 2023-10-26 12:41 | Emergency (ER) | payer BC ==
--- NOTE | 2023-10-26 12:56 | ED ---
Nausea/Vomiting/Diarrhea HPI - General Stated complaint: 18wks, vomiting Time Seen by Provider: 10/26/23 12:54 Source: patient, RN notes reviewed Mode of arrival: ambulatory Limitations: no limitations - History of Present Illness Initial comments: 33-year-old female presented to ER with chief complaint nausea and vomiting. Patient is approximately 18 weeks gestation. She states since yesterday she has been unable to keep anything down. She has taken Zofran without relief. Will be sent her here for IV fluids and concern of dehydration. Patient denies any abdominal pain or vaginal bleeding. Denies fevers, chills, chest pain, shortness of breath, urinary complaints, or peripheral edema. - Related Data Home Medications Medication Instructions Recorded Confirmed Aspirin EC [Ecotrin Low Dose] 81 mg PO HS 07/11/22 12/24/22 Mat-Ponn-Rfcfs Acid 1 cap PO HS 07/11/22 12/24/22 [-U Capsule (formulary)] Thyroid,Pork [[place] Thyroid] 60 mg PO DAILY 07/11/22 12/24/22 Previous Rx's Medication Instructions Recorded Cephalexin [Keflex] 500 mg PO Q12HR 1 Days #2 cap 09/09/23 Ondansetron Odt [Zofran Odt] 4 mg PO Q8HR PRN #12 tab 09/09/23 Oseltamivir [Tamiflu] 75 mg PO Q12HR #14 cap 09/09/23 Ondansetron Odt [Zofran Odt] 4 mg PO Q8HR PRN #10 tab 10/26/23 Allergies Allergy/AdvReac Type Severity Reaction Status Date / Time surgical glue Allergy Intermediate Swelling Uncoded 10/26/23 13:04 Review of Systems ROS Statement: Those systems with pertinent positive or pertinent negative responses have been documented in the HPI. ROS Other: All systems not noted in ROS Statement are negative. 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 Head: Normocephalic, atraumatic Eyes: PERRLA, EOMI ENT: Airway patent Chest: Nonlabored breathing Skin: No visual rash, normal skin tone Neuro: Alert and oriented 3 Musculoskeletal: No gross abnormalities General appearance: alert, in no apparent distress Respiratory exam: Present: normal lung sounds bilaterally. Absent: respiratory distress, wheezes, rales, rhonchi, stridor Cardiovascular Exam: Present: regular rate, normal rhythm, normal heart sounds. Absent: systolic murmur, diastolic murmur, rubs, gallop, clicks GI/Abdominal exam: Present: soft, normal bowel sounds. Absent: distended, tenderness, guarding, rebound, rigid Skin exam: Present: warm, dry, intact, normal color. Absent: rash Course Vital Signs 10/26/23 10/26/23 13:01 16:06 Temperature 98.8 F 98 F Pulse Rate 100 73 Respiratory 15 18 Rate Blood Pressure 100/70 110/67 O2 Sat by Pulse 99 98 Oximetry Medical Decision Making - Medical Decision Making I performed the quick note portion of this chart. Electronically signed by Basil Hammer PA-C Was pt. sent in by a medical professional or institution ([facility], CHIEF ANALYTICS OFFICER, urgent care, hospital, or alf...) When possible be specific @ -No Did you speak to anyone other than the patient for history (EMS, parent, family, police, friend...)? What history was obtained from this source @ -No Did you review nursing and triage notes (agree or disagree)? Why? @ -I reviewed and agree with nursing and triage notes Were old charts reviewed (outside hosp., previous admission, EMS record, old EKG, old radiological studies, urgent care reports/EKG's, alf records)? Report findings @ -No old charts were reviewed Differential Diagnosis (chest pain, altered mental status, abdominal pain women, abdominal pain men, vaginal bleeding, weakness, fever, dyspnea, syncope, headache, dizziness, GI bleed, back pain, seizure, CVA, palpatations, mental health, musculoskeletal)? @ -Differential Abdominal Pain Women:Appendicitis, Cholecystitis, diverticulosis, ischemic bowel, pancreatitis, hepatitis, UTI, gastroenteritis, AAA, incarcerated hernia, bowel obstruction, constipation, inflammatory bowel, hepatitis, peptic ulcer disease, splenic infarction, perforated viscus, vulvitis, ovarian torsion, PID, kidney stone, placenta abruption, this is not meant to be an all-inclusive list EKG interpreted by me (3pts min.). @ -None X-rays interpreted by me (1pt min.). @ -None done CT interpreted by me (1pt min.). @ -None done U/S interpreted by me (1pt. min.). @ - ultrasound significant for a single IUP measuring 18 weeks 5 days. Heart rate 155. Low-lying placenta. What testing was considered but not performed or refused? (CT, X-rays, U/S, labs)? Why? @ -None What meds were considered but not given or refused? Why? @ -None Did you discuss the management of the patient with other professionals (professionals i.e. , PA, CHIEF ANALYTICS OFFICER, lab, RT, psych nurse, nephrology social worker, supervisor lathing, teacher, human resource officer, case hardener)? Give summary @ -No Was smoking cessation discussed for >3mins.? @ -No Was critical care preformed (if so, how long)? @ -No Were there social determinants of health that impacted care today? How? (Homelessness, low income, unemployed, alcoholism, drug addiction, transportati on, low edu. Level, literacy, decrease access to med. care, residential, rehab)? @ -No Was there de-escalation of care discussed even if they declined (Discuss DNR or withdrawal of care, Hospice)? DNR status @ -No What co-morbidities impacted this encounter? (DM, HTN, Smoking, COPD, CAD, Cancer, CVA, ARF, Chemo, Hep., AIDS, mental health diagnosis, sleep apnea, morbid obesity)? @ - Was patient admitted / discharged? Hospital course, mention meds given and route, prescriptions, significant lab abnormalities, going to OR and other pertinent info. @ -Discharged. 33 year olds female presenting to the ER with chief complaint of nausea and vomiting. Patient is approximately 18 weeks gestation. History and physical exam completed. Vitals stable. Laboratory and urine studies obtained showing dehydration. Patient received 2 L IV fluids and antiemetics in the ER with improvement of symptoms. ultrasound significant for a single IUP measuring 18 weeks 5 days. Heart rate 155 bpm. Serum hCG 30,704. Results discussed with patient, all questions answered. Upon reevaluation, patient resting comfortably in exam room and eager for discharge. Zofran prescribed. Strict return parameters discussed. I advised close follow-up with [facility]. Patient verbally expressed understanding and agreement with care plan. Case discussed with ED attending, Dr. Kim. Undiagnosed new problem with uncertain prognosis? @ -No Drug Therapy requiring intensive monitoring for toxicity (Heparin, Nitro, Insulin, Cardizem)? @ -No Were any procedures done? @ -No Diagnosis/symptom? @ -Nausea and vomiting/ Acute, or Chronic, or Acute on Chronic? @ -Acute Uncomplicated (without systemic symptoms) or Complicated (systemic symptoms)? @ -Uncomplicated Side effects of treatment? @ -No Exacerbation, Progression, or Severe Exacerbation? @ -No Poses a threat to life or bodily function? How? (Chest pain, [place], [place], pneumonia, PE, COPD, DKA, ARF, appy, cholecystitis, CVA, Diverticulitis, Homicidal, Suicidal, threat to staff... and all critical care pts) @ -No - Lab Data Result diagrams: 10/26/23 13:36 10/26/23 13:36 Lab Results 10/26/23 10/26/23 10/26/23 Range/Units 13:36 13:36 13:36 WBC 9.3 (3.8-10.6) k/uL RBC 4.22 (3.80-5.40) m/uL Hgb 13.3 (11.4-16.0) gm/dL Hct 40.0 (34.0-46.0) % MCV 94.7 (80.0-100.0) fL MCH 31.6 (25.0-35.0) pg MCHC 33.4 (31.0-37.0) g/dL RDW 13.6 (11.5-15.5) % Plt Count 167 (150-450) k/uL MPV 8.9 Neutrophils % 92 % Lymphocytes % 4 % Monocytes % 2 % Eosinophils % 1 % Basophils % 0 % Neutrophils # 8.5 H (1.3-7.7) k/uL Lymphocytes # 0.4 L (1.0-4.8) k/uL Monocytes # 0.2 (0-1.0) k/uL Eosinophils # 0.1 (0-0.7) k/uL Basophils # 0.0 (0-0.2) k/uL Sodium 136 L (137-145) mmol/L Potassium 4.4 (3.5-5.1) mmol/L Chloride 109 H (98-107) mmol/L Carbon Dioxide 21 L (22-30) mmol/L Anion Gap 6 mmol/L BUN 16 (7-17) mg/dL Creatinine 0.46 L (0.52-1.04) mg/dL Est GFR (CKD-EPI)AfAm >90 (>60 ml/min/1.73 sqM) Est GFR (CKD-EPI)NonAf >90 (>60 ml/min/1.73 sqM) Glucose 95 (74-99) mg/dL Calcium 9.0 (8.4-10.2) mg/dL Total Bilirubin 0.9 (0.2-1.3) mg/dL AST 25 (14-36) U/L ALT 14 (4-34) U/L Alkaline Phosphatase 68 (38-126) U/L Total Protein 7.0 (6.3-8.2) g/dL Albumin 3.9 (3.5-5.0) g/dL HCG, Quant mIU/mL Urine Color Yellow Urine Appearance Cloudy H (Clear) Urine pH 5.5 (5.0-8.0) Ur Specific [place] 1.029 (1.001-1.035) Urine Protein Trace H (Negative) Urine Glucose (UA) Negative (Negative) Urine Ketones 4+ H (Negative) Urine Blood Negative (Negative) Urine Nitrite Negative (Negative) Urine Bilirubin Negative (Negative) Urine Urobilinogen <2.0 (<2.0) mg/dL Ur Leukocyte Esterase Small H (Negative) Urine RBC 1 (0-5) /hpf Urine WBC 3 (0-5) /hpf Ur Squamous Epith Cells 24 H (0-4) /hpf Urine Bacteria Moderate H (None) /hpf Hyaline Casts 1 (0-2) /lpf Urine Mucus Moderate H (None) /hpf 10/26/23 Range/Units 13:36 WBC (3.8-10.6) k/uL RBC (3.80-5.40) m/uL Hgb (11.4-16.0) gm/dL Hct (34.0-46.0) % MCV (80.0-100.0) fL MCH (25.0-35.0) pg MCHC (31.0-37.0) g/dL RDW (11.5-15.5) % Plt Count (150-450) k/uL MPV Neutrophils % % Lymphocytes % % Monocytes % % Eosinophils % % Basophils % % Neutrophils # (1.3-7.7) k/uL Lymphocytes # (1.0-4.8) k/uL Monocytes # (0-1.0) k/uL Eosinophils # (0-0.7) k/uL Basophils # (0-0.2) k/uL Sodium (137-145) mmol/L Potassium (3.5-5.1) mmol/L Chloride (98-107) mmol/L Carbon Dioxide (22-30) mmol/L Anion Gap mmol/L BUN (7-17) mg/dL Creatinine (0.52-1.04) mg/dL Est GFR (CKD-EPI)AfAm (>60 ml/min/1.73 sqM) Est GFR (CKD-EPI)NonAf (>60 ml/min/1.73 sqM) Glucose (74-99) mg/dL Calcium (8.4-10.2) mg/dL Total Bilirubin (0.2-1.3) mg/dL AST (14-36) U/L ALT (4-34) U/L Alkaline Phosphatase (38-126) U/L Total Protein (6.3-8.2) g/dL Albumin (3.5-5.0) g/dL HCG, Quant 11667.5 mIU/mL Urine Color Urine Appearance (Clear) Urine pH (5.0-8.0) Ur Specific [place] (1.001-1.035) Urine Protein (Negative) Urine Glucose (UA) (Negative) Urine Ketones (Negative) Urine Blood (Negative) Urine Nitrite (Negative) Urine Bilirubin (Negative) Urine Urobilinogen (<2.0) mg/dL Ur Leukocyte Esterase (Negative) Urine RBC (0-5) /hpf Urine WBC (0-5) /hpf Ur Squamous Epith Cells (0-4) /hpf Urine Bacteria (None) /hpf Hyaline Casts (0-2) /lpf Urine Mucus (None) /hpf - Radiology Data Radiology results: report reviewed, image reviewed Disposition Clinical Impression: Nausea & vomiting, Disposition: HOME SELF-CARE Condition: Stable Instructions (If sedation given, give patient instructions): Nausea and Vomiting in (ED) Additional Instructions: Follow-up with OB as scheduled. Return to the ER for any new or worsening concerns. Prescriptions: Ondansetron Odt [Zofran Odt] 4 mg PO Q8HR PRN #10 tab PRN Reason: Nausea Is patient prescribed a controlled substance at d/c from ED?: No Referrals: John Miguel DO [Primary Care Provider] - 1-2 days Time of Disposition: 15:56
[2023-10-26] MEDS: SODIUM CHLORIDE 0.9% 1,000 ML IV STA ×2 (13:35→14:38)
[2023-10-26 13:46] LABS: Basophils % (A) 0 %; Eosinophils # (A) 0.1 k/uL (0-0.7); Eosinophils % (A) 1 %; HGB 13.3 gm/dL (11.4-16.0); Lymphocytes # (A) 0.4 k/uL (1.0-4.8); Lymphocytes % (A) 4 %; MCH 31.6 pg (25.0-35.0); MCHC 33.4 g/dL (31.0-37.0); MCV 94.7 fL (80.0-100.0); Mean Platelet Volume 8.9; Monocytes # (A) 0.2 k/uL (0-1.0); Monocytes % (A) 2 %; Neutrophils # (A) 8.5 k/uL (1.3-7.7); Neutrophils % (A) 92 %; Platelet Count 167 k/uL (150-450); RBC 4.22 m/uL (3.80-5.40); RDW 13.6 % (11.5-15.5); WBC 9.3 k/uL (3.8-10.6)
[2023-10-26 13:55] LABS: Appearance,Urine Cloudy (Clear); Bacteria,Urine Moderate /hpf; Bilirubin,Urine Negative (Negative); Blood,Urine Negative (Negative); Color,Urine Yellow; Glucose,Urine (UA) Negative (Negative); Hyaline Casts,Urine 1 /lpf (0-2); Ketones,Urine 4+ (Negative); Leukocyte Esterase,Urine Small (Negative); Mucus,Urine Moderate /hpf; Nitrite,Urine Negative (Negative); PH, Urine 5.5 (5.0-8.0); Protein,Urine Trace (Negative); RBC,Urine 1 /hpf (0-5); Specific Gravity,Urine 1.029 (1.001-1.035); Squamous Epithelial Cell,Urine 24 /hpf (0-4); Urobilinogen,Urine <2.0 mg/dL (<2.0); WBC,Urine 3 /hpf (0-5)
[2023-10-26] MEDS: ONDANSETRON 4 MG/2 ML VIAL IVP STA (14:02)
[2023-10-26 14:18] LABS: ALT 14 U/L (4-34); AST 25 U/L (14-36); African American GFR (CKD) >90 (>60 ml/min/1.73 sqM); Albumin 3.9 g/dL (3.5-5.0); Alkaline Phosphatase 68 U/L (38-126); Anion Gap 6 mmol/L; Blood Urea Nitrogen 16 mg/dL (7-17); Carbon Dioxide 21 mmol/L (22-30); Chloride 109 mmol/L (98-107); Glucose 95 mg/dL (74-99); Non-African American GFR(CKD) >90 (>60 ml/min/1.73 sqM); Potassium 4.4 mmol/L (3.5-5.1); Sodium 136 mmol/L (137-145); Total Bilirubin 0.9 mg/dL (0.2-1.3)
--- NOTE | 2023-10-26 15:31 | US ---
EXAMINATION TYPE: US OB >= 14 wk fetus DATE OF EXAM: 10/26/2023 COMPARISON: None CLINICAL INDICATION: Female, 33 years old with history of nausea; Nausea, vomiting. . TECHNIQUE: Transabdominal (TA) GESTATIONAL AGE / DATING Physician Established: (18 weeks/0 days) EDC: 03/28/2024 Dates by LMP: (18 weeks/0 days) EDC: 03/28/2024 Dates by First Scan: This is first scan Dates by Current Scan: (18 weeks/6 days) EDC: 03/22/2024 SURVEY IUP: Single PLACENTA: Posterior PREVIA: Low Lying. Measures 1.8 cm from the internal os. SOFY: 13.1 cm Normal CERVICAL LENGTH (transabdominal: norm > 3.0cm): 3.4 cm BIOMETRY PRESENTATION: Breech BPD: 4.35 cm 19 weeks / 1 day HC: 15.9 cm 18 weeks / 5 days AC: 14.12 cm 19 weeks / 3 days FL: 2.84 cm 18 weeks / 5 days ESTIMATED WEIGHT IN GRAMS: 273.42 grams ESTIMATED WEIGHT IN LBS/OZ: 0 lbs. 10 oz. WEIGHT PERCENTAGE BASED ON ESTABLISHED DATES: 96.3% HC/AC: 1.12 Normal FL/AC: 20.11 HEART RATE: 155 bpm RHYTHM: Normal Weight percentage based on established dates 96.3% Placenta appears to be low lying. IMPRESSION: 1. Low-lying placenta. Recommend follow-up ultrasound prior to delivery for further evaluation. Measu res approximately 1.8 cm from the internal os. 2. Viable 18 weeks 6 days with an EDC of 03/22/2024. 3. Estimated weight percent based on established dates is at 96.3%. Correlate clinically.
[2023-10-26 16:09] VITALS: BP 110/67; PULSE 73; RESP 18; TEMP 98
[2023-10-26] MEDS: METOCLOPRAMIDE 5 MG/ML 2 ML VIAL IVP STA (16:18)
== END 2023-10-26 16:18 | disposition home or self-care (01) ==
LOC: EC 12:41
DX: O21.9 Vomiting of pregnancy, unspecified (principal); O99.282 Endocrine, nutritional and metabolic diseases complicating pregnancy, second trimester; Z3A.18 18 weeks gestation of pregnancy; Z88.8 Allergy status to other drugs, medicaments and biological substances
CPT/HCPCS: 36415; 80053; 85025; 81001; 84702; 76805; 99284; 96374; 96375; 96361 ×3; J2765; J2405

== ENCOUNTER 2024-01-04 20:42 | Outpatient (CLI) | payer BC ==
[2024-01-04] MEDS: LACTATED RINGERS 1,000 ML IV ONE ×2 (21:09→22:18)
[2024-01-04] MEDS: FAMOTIDINE 20 MG/2 ML VIAL IV STA (21:24)
[2024-01-04] MEDS: ONDANSETRON 4 MG/2 ML VIAL IVP STA (21:24)
[2024-01-04 21:42] LABS: Appearance,Urine Cloudy (Clear); Bacteria,Urine Rare /hpf; Bilirubin,Urine Negative (Negative); Blood,Urine Negative (Negative); Color,Urine Yellow; Glucose,Urine (UA) Negative (Negative); Hyphae Yeast, Urine Rare /hpf; Ketones,Urine 2+ (Negative); Leukocyte Esterase,Urine Moderate (Negative); Mucus,Urine Many /hpf; Nitrite,Urine Negative (Negative); PH, Urine 6.5 (5.0-8.0); Protein,Urine Trace (Negative); RBC,Urine 1 /hpf (0-5); Specific Gravity,Urine 1.027 (1.001-1.035); Squamous Epithelial Cell,Urine 22 /hpf (0-4); Urobilinogen,Urine <2.0 mg/dL (<2.0); WBC,Urine 3 /hpf (0-5)
[2024-01-04] MEDS: ACETAMINOPHEN IV (For NPO) 1,000 MG in EMPTY BAG 1 BAG IVPB ONE (22:32)
[2024-01-04 23:59] VITALS: BP 115/56; PULSE 94; RESP 16; TEMP 98.4
--- NOTE | 2024-01-15 09:39 | P.MSEPDOC ---
Presenting Problems - Arrival Data Date of Arrival on Unit: 01/04/24 Time of Arrival on Unit: 20:42 Mode of Transport: Ambulatory - Complaint OB-Reason for Admission/Chief Complaint: Acute Nausea/Vomiting Comment: Pt presents to triage with complaints of lower abdomial and back pain along with vomiting x1.5 hours. Describes pain as throbbing and states that abdominal pain is constant while back pain comes and goes. Medical History - Information : 2 Para: 1 Term: 1 : 0 Abortions: Spontaneous or Elective: 0 Number of Living Children: 1 - Gestational Age Gestational Age by BRIONNA (wks/days): 28 Weeks and 0 Days Review of Systems - Review of Systems Constitutional: No problems Breast: No problems ENT: No problems Cardiovascular: No problems Respiratory: No problems Gastrointestinal: Pain Genitourinary: No problems Musculoskeletal: No problems Neurological: No problems Skin: No problems Vital Signs - Temperature Temperature: 98.4 F - Pulse Pulse Oximetery Pulse Rate: 94 Pulse Assessment Method: Pulse Oximetry - Respirations Respiratory Rate: 16 Oxygen Delivery Method: Room Air O2 Sat by Pulse Oximetry: 100 - Blood Pressure Right Arm Blood Pressure: 115/56 Blood Pressure Mean: 75 Blood Pressure Source: Automatic Cuff Medical Screen Scoring - Cervical Exam Membranes: Intact - Uterine Contractions Intensity: Absent Resting: Soft to palpation - Assessment - Baby A Baseline FHR: 135 Heart Rate - NICHD Category: Category I (Normal) NST: Reactive Physician Notification - Physician Notified Physician Notified Date: 01/04/24 Physician Notified Time: 20:56 Physician: Sabrina Mina New Order Received: Yes - Notification Comment Comment: Dr. Mina in department and aware of pt, reviewing FHT at nurses station. Orders for IV access, fluid hydration, U/A, Zofran and Pepcid. Maternal Triage Index - Maternal Triage Index Presenting for scheduled procedure w/no complaint: No - Stat/Priority 1 Stat Priority 1: No - Urgent/Priority 2 Urgent Priority 2: No - Prompt/Priority 3 Prompt Priority 3: No - Non-Urgent/Priority 4 Non-Urgent Priority 4: Yes Criteria Met for Priority 4: Pt presents to triage with complaints of lower abdomial and back pain along with vomiting x1.5 hours. Describes pain as throbbing and states that abdominal pain is constant while back pain comes and goes. Disposition - Disposition OB Disposition: Discharge to home Discharge Date: 01/04/24 Discharge Time: 23:44 I agree with the RN Medical Screening Exam: Yes Case reviewed; plan agreed upon as documented in EMR&OBIX.: Yes Diagnosis: VOMITING OF , UNSPECIFIED
== END 2024-01-04 23:44 | disposition home or self-care (01) ==
LOC: FBPOP 20:42
PROVIDERS: ATTEND Obstetrics & Gynecology Obstetrics
DX: O21.9 Vomiting of pregnancy, unspecified (principal); O26.893 Other specified pregnancy related conditions, third trimester; R10.30 Lower abdominal pain, unspecified; M54.9 Dorsalgia, unspecified; Z3A.28 28 weeks gestation of pregnancy; Z91.048 Other nonmedicinal substance allergy status
CPT/HCPCS: 59025; 99214; 96361; 96365; 96375; 81001; J2405; J3490; J0131; 36415; 96367; 96374

== ENCOUNTER 2024-03-18 06:00 | Inpatient (IN) | payer BC ==
[2024-03-18] MEDS ORDERED: CARBOPROST TROMETHAMINE 250 MCG/ML 1 ML AMP IM PRN (06:25)
[2024-03-18] MEDS ORDERED: METHYLERGONOVINE 0.2 MG/ML 1 ML AMP IM PRN (06:25)
[2024-03-18] MEDS ORDERED: TRANEXAMIC 1,000 MG/100ML-NACL 1,000 MG in EMPTY BAG 1 BAG IV PRN (06:25)
[2024-03-18] MEDS ORDERED: miSOPROStoL 200 MCG TAB RECTAL PRN (06:25)
[2024-03-18] MEDS ORDERED: miSOPROStoL 200 MCG TAB PO PRN (06:25)
[2024-03-18] MEDS ORDERED: TERBUTALINE 1 MG/ML VIAL SQ PRN (06:25)
[2024-03-18] MEDS ORDERED: OXYTOCIN 10 UNIT/ML 1 ML VIAL IM PRN (06:25)
[2024-03-18] MEDS: LACTATED RINGERS 1,000 ML IV SCH (06:52)
[2024-03-18 07:21] LABS: Basophils % (A) 1 %; Eosinophils # (A) 0.3 k/uL (0-0.7); Eosinophils % (A) 4 %; HCT 31.8 % (34.0-46.0); HGB 10.4 gm/dL (11.4-16.0); Hypochromasia Slight; Lymphocytes # (A) 2.8 k/uL (1.0-4.8); Lymphocytes % (A) 33 %; MCH 28.9 pg (25.0-35.0); MCHC 32.6 g/dL (31.0-37.0); MCV 88.5 fL (80.0-100.0); Mean Platelet Volume 9.4; Monocytes # (A) 0.5 k/uL (0-1.0); Monocytes % (A) 5 %; Neutrophils # (A) 4.6 k/uL (1.3-7.7); Neutrophils % (A) 55 %; Platelet Count 206 k/uL (150-450); RDW 15.9 % (11.5-15.5); WBC 8.4 k/uL (3.8-10.6)
[2024-03-18] MEDS: OXYTOCIN 30 UNITS/500 ML NS 30 UNIT in SALINE 1 500ML.BAG IV SCH (11:30)
[2024-03-18] MEDS ORDERED: ROPIVACAINE 5 MG/ML 30 ML VIAL ONE (11:37)
[2024-03-18] MEDS ORDERED: SODIUM CHLORIDE 0.9% 250 ML BAG ONE (11:37)
[2024-03-18] MEDS ORDERED: fentaNYL (PF) 50 MCG/ML 5 ML AMP ONE (11:37)
[2024-03-18] MEDS ORDERED: ROPIVACAINE 225 MG, fentaNYL (PF). 450 MCG in SODIUM CHLORIDE 0.9% 171 ML EPIDURAL ONE (12:17)
[2024-03-18] MEDS: LIDOCAINE 0.5% (PF) 5 MG/ML (50 ML SDV) SQ PRN (15:10)
[2024-03-18] MEDS ORDERED: ZOLPIDEM 5 MG TAB PO PRN (15:27)
[2024-03-18] MEDS ORDERED: HYDROCORTISONE 2.5% RECTAL CREAM 30 GM TUBE RECTAL PRN (15:27)
[2024-03-18] MEDS ORDERED: diphenhydrAMINE 50 MG CAP PO PRN (15:27)
[2024-03-18] MEDS ORDERED: diphenhydrAMINE 50 MG/ML 1 ML VIAL IVP PRN ×2 (15:27)
[2024-03-18] MEDS ORDERED: LANOLIN CREAM 1 GM TUBE TOPICAL PRN (15:27)
[2024-03-18] MEDS ORDERED: diphenhydrAMINE 25 MG CAP PO PRN (15:27)
[2024-03-18] MEDS ORDERED: SIMETHICONE 80 MG CHEWABLE PO PRN (15:27)
--- NOTE | 2024-03-18 15:30 | P.HPOB ---
History of Present Illness H&P Date: 03/18/24 Chief Complaint: IUP at 38-5/7 weeks, advanced cervical dilation 33-year-old -1-0-1 at 38-5/7 weeks that presents to labor and delivery for induction of labor secondary to advanced cervical dilation. Patient has been receiving routine care which has been essentially uncomplicated. Patient does have history of thyroid disease controlled with [place] Thyroid 60 mg. Patient is a prior delivery at 36+ weeks secondary to premature rupture membranes. Patient notes good movement denies vaginal bleeding, she states she had painful contractions through the night. On blood work this patient has a blood type of A+, rubella status nonimmune, hepatitis B surface engine negative, HIV negative, RPR is nonreactive, grew beta strep culture is negative. 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 History of Any Multi-Drug Resistant Organisms: None Reported Past Surgical History: Cholecystectomy, Tonsillectomy Additional Past Surgical History / Comment(s): Gastric sleeve, breasts augmentation Past Anesthesia/Blood Transfusion Reactions: No Reported Reaction Smoking Status: Never smoker Medications and Allergies Home Medications Medication Instructions Recorded Confirmed Type Aspirin EC [Ecotrin Low Dose] 81 mg PO HS 07/11/22 03/18/24 History Ycd-Ukgi-Mjrqh Acid 1 cap PO HS 07/11/22 03/18/24 History [-U Capsule (formulary)] Thyroid,Pork [[place] Thyroid] 60 mg PO DAILY 07/11/22 03/18/24 History Allergies Allergy/AdvReac Type Severity Reaction Status Date / Time latex Allergy Rash/Hives Verified 03/18/24 06:23 surgical glue Allergy Intermediate Swelling Uncoded 10/26/23 13:04 Exam Osteopathic Statement: *. No significant issues noted on an osteopathic structural exam other than those noted in the History and Physical/Consult. Intake and Output 03/17/24 03/18/24 03/18/24 22:59 06:59 14:59 Other: Weight 71.668 kg Targeted physical exam is performed this date in general this is a well- nourished well-developed female in no acute distress, breathing is nonlabored, heart has a regular rate and rhythm, abdomen is gravid and small for gestational age, heart tones are noted to be category 1 and she is ravi irregularly. Cervical exam is deferred as we are awaiting staff to start induction. Results Result Diagrams: 03/18/24 06:40 Abnormal Lab Results - Last 24 Hours (Table) 03/18/24 Range/Units 06:40 RBC 3.60 L (3.80-5.40) m/uL Hgb 10.4 L (11.4-16.0) gm/dL Hct 31.8 L (34.0-46.0) % RDW 15.9 H (11.5-15.5) % Assessment and Plan (1) Term Narrative/Plan: Advanced cervical dilation Current Visit: Yes Status: Acute Code(s): Z34.90 - ENCNTR FOR SUPRVSN OF NORMAL , UNSP, UNSP TRIMESTER SNOMED Code(s): 72352721 Plan: 33-year-old -1-0-1 at 38-5/7 weeks that presents to labor and delivery for induction of labor secondary to advanced cervical dilation. Will admit to labor and delivery and start Pitocin induction of labor when staff arrives. Patient is counseled on need for amniotomy. Patient does desire epidural and anesthesia will be notified when appropriate. Anticipate spontaneous vaginal delivery.
--- NOTE | 2024-03-18 15:32 | P.PROBDLV ---
Vaginal Delivery Note - . Vaginal Delivery Note: Viable male delivered at 1505, weight of 7 pounds 0 ounces, Apgars of 9 and 9 at 1 and 5 minutes respectively. 33-year-old G2, P1 at 38-4/7 weeks that presents to labor and delivery for induction of labor for advanced cervical dilation. Patient was noted to be 5 cm in the office, upon check here in labor and delivery she was noted to be 6-7. Patient was admitted and amniotomy was performed. Clear fluid was obtained. A small amount Pitocin was used for augmentation of labor. Patient became uncomfortable and requested epidural. Epidural was placed without difficulty by the anesthesia department. Patient made progress toward complete dilation. Once completely dilated patient began pushing and had a normal spontaneous vaginal delivery of a viable male infant at 1505, weight of 7 pounds 0 ounces or 3175 g. Apgars of 9 and 9 at 1 and 5 minutes respectively. After 2-minute delay the umbilical cord was doubly clamped and cut. The placenta was delivered spontaneously intact with a three-vessel cord being noted. On inspection the patient's vaginal vault a first-degree vaginal laceration was appreciated along with a periurethral laceration that was bleeding. The first-degree laceration was repaired in the usual fashion with 3-0 repeat after instillation of lidocaine. The periurethral laceration was repaired after right upper catheter was placed to delineate the urethral meatus. It was closed in a running locked fashion with 4-0 chromic. Hemostasis was appreciated after closure. Patient and tolerated delivery well and are resting comfortably. Estimated blood loss 100 cc All counts were noted be correct x 2 at the end of the delivery.
[2024-03-18] MEDS: BENZOCAINE/MENTHOL SPRAY 1 GM/SPRAY AEROSOL TOPICAL PRN (15:43)
[2024-03-18] MEDS: IBUPROFEN 600 MG TAB PO SCH (19:51)
[2024-03-18] MEDS: ONDANSETRON 4 MG/2 ML VIAL IVP PRN (20:19)
[2024-03-18] MEDS: SENNOSIDES-DOCUSATE SODIUM 1 EACH TAB PO SCH (22:52)
[2024-03-18] MEDS: ACETAMINOPHEN TAB 325 MG TAB PO PRN (22:57)
[2024-03-19] MEDS: PRENATAL VIT-IRON-FOLIC ACID 1 EACH TABLET PO SCH ×2 (01:33→15:08)
[2024-03-19] MEDS: MEASLES-MUMPS-RUBELLA VACC/PF 12,500 UNIT/0.5 ML VIAL SQ ONE (02:20)
[2024-03-19] MEDS: THYROID, PORK 30 MG TAB PO SCH (06:30)
[2024-03-19 07:05] LABS: Anisocytosis Slight; Basophils % (A) 0 %; Eosinophils # (A) 0.3 k/uL (0-0.7); Eosinophils % (A) 3 %; HCT 29.1 % (34.0-46.0); HGB 9.8 gm/dL (11.4-16.0); Lymphocytes % (A) 33 %; MCH 29.4 pg (25.0-35.0); MCHC 33.5 g/dL (31.0-37.0); MCV 87.6 fL (80.0-100.0); Monocytes # (A) 0.5 k/uL (0-1.0); Monocytes % (A) 6 %; Neutrophils # (A) 5.3 k/uL (1.3-7.7); Neutrophils % (A) 57 %; Platelet Count 167 k/uL (150-450); RBC 3.32 m/uL (3.80-5.40); RDW 16.4 % (11.5-15.5); WBC 9.3 k/uL (3.8-10.6)
[2024-03-19 08:47] VITALS: BP 104/68; PULSE 78; RESP 15; TEMP 97.8
--- NOTE | 2024-03-19 10:13 | P.DS ---
Providers Date of admission: 03/18/24 06:00 Expected date of discharge: 03/19/24 Attending physician: Sabrina Mina Primary care physician: Stated None - Discharge Diagnosis(es) (1) Term Current Visit: Yes Status: Acute (2) Status post vaginal delivery Current Visit: Yes Status: Acute (3) Obstetrical laceration Current Visit: Yes Status: Acute Hospital Course: 33-year-old G2 now P1 102 that presented to labor and delivery yesterday for induction of labor secondary to advanced cervical dilation. For full details on this patient please see the dictated history and physical. Patient's induction was delayed secondary to staffing issues, patient's induction was begun around 1130, at that time patient's cervix was noted to be 6+ centimeters. Patient underwent amniotomy and clear fluid was obtained. Patient did request epidural. Epidural was placed without difficulty by the anesthesia department. Patient made progress toward complete dilation. Patient began pushing and had a normal spontaneous vaginal delivery of a viable male infant, at 1505, weight of 7 pounds 0 ounces. Patient did sustain a first-degree vaginal laceration which was repaired in the usual fashion with 3-0 Rapide. In addition of periurethral laceration was noted and repaired with 4-0 chromic. Patient's course has been uneventful. This post day #1 she is ambulating and voiding without difficulty. She is tolerating a regular diet without nausea or vomiting. She states her pain is well-controlled. She denies concerns and would like discharge home later today. Patient Condition at Discharge: Good Plan - Discharge Summary New Discharge Prescriptions: No Action Its-Cqjg-[place]paka Acid [-U Capsule (formulary)] 1 cap PO HS Aspirin EC [Ecotrin Low Dose] 81 mg PO HS Thyroid,Pork [[place] Thyroid] 60 mg PO DAILY Discharge Medication List Aspirin EC [Ecotrin Low Dose] 81 mg PO HS 07/11/22 [History] Mng-Kkmb-Kultp Acid [-U Capsule (formulary)] 1 cap PO HS 07/11/22 [History] Thyroid,Pork [[place] Thyroid] 60 mg PO DAILY 07/11/22 [History] Follow up Appointment(s)/Referral(s): Sabrina Mina DO [Doctor of Osteopathic Medicine] - 05/05/24 1:45 pm Patient Instructions/Handouts: Vaginal Delivery (GEN), Vaginal Delivery (DC) Activity/Diet/Wound Care/Special Instructions: No tub baths or intercourse until 6 weeks . Gbor-jmw-inwkbwj ibuprofen 600 mg or 3 tablets every 6 hours as needed for pain. Patient is to call the office and make a routine visit for 6 weeks. Should she any concerns prior to this visit she is urged to call the office and be seen prior. Discharge Disposition: HOME SELF-CARE
== END 2024-03-19 15:50 | disposition home or self-care (01) | DRG 807 ==
LOC: 4FBP 06:00
PROVIDERS: ADMIT Obstetrics & Gynecology Obstetrics; ATTEND Obstetrics & Gynecology Obstetrics
PROC: 10E0XZZ Delivery of Products of Conception, External Approach (ICD-10-PCS; principal; 2024-03-18)
PROC: 0HQ9XZZ Repair Perineum Skin, External Approach (ICD-10-PCS; 2024-03-18)
DX: O70.0 First degree perineal laceration during delivery (principal); Z37.0 Single live birth; O71.82 Other specified trauma to perineum and vulva; J45.909 Unspecified asthma, uncomplicated; O99.52 Diseases of the respiratory system complicating childbirth; Z3A.38 38 weeks gestation of pregnancy
CPT/HCPCS: 85025; 86850; 86900; 86901; 90707